=== PATIENT | male | born 1955 | race Caucasian/White ===

== ENCOUNTER → 2020-05-26 | Outpatient (CLI) | payer OTHER ==
[~2020-05-26] MED LIST: ASCO500C PO; GLUC-11 PO; MULT-245 PO; OMEG-33 PO; SIMV40TA PO
== END ==
LOC: LAB 07:30
PROVIDERS: ATTEND Nurse Anesthetist, Certified Registered
DX: Z01.812 Encounter for preprocedural laboratory examination (principal); Z86.010 Personal history of colon polyps; Z20.822 Contact with and (suspected) exposure to COVID-19
CPT/HCPCS: U0003; U0005

== ENCOUNTER → 2020-05-30 | Day surgery (SDC) | payer OTHER ==
[~2020-05-30] MED LIST changes: +IPRATRPIUM/ALBUTEROL 0.5/2.5MG 3 ML NEBU. NEB PRN; +IV RINGERS SOLUTION,LACTATED 1,000 ML IV SCH; +LIDOCAINE 2% PF 5 ML VIAL. ONE; +MIDAZOLAM HCL PF 2 MG/2 ML VIAL. IV ONE; +ONDANSETRON PF 4 MG/2 ML VIAL. IV PRN; +PROPOFOL 10,000 MCG/ML (20ML) VIAL IV ONE
[2020-05-30 10:21] VITALS: BP 120/84
--- NOTE | 2020-06-02 15:11 | PATHOLOGY ---
[facility] Accession Number: [id number] . 01 Material submitted: . PART A: cecum - CECUM POLYP BIOPSIES PART B: rectum - RECTAL POLYP . 01 Clinical history: . COLONOSCOPY SCREENING/HISTORY OF POLYPS . 02 Diagnosis: A. Colon biopsies, cecal polyp: - Prominent mucosal fold, with single mucosal-associated lymphoid aggregate. . B. Colorectal biopsy, rectal polyp: - Tubular adenoma. (JPM:estela; 06/02/2020) S 06/02/2020 1148 Local . 02 Comment: There is no high grade dysplasia or evidence of malignancy. (JPM:estela; 06/02/2020) . 02 Electronically signed: . Damon Hernandez MD, Pathologist NPI- [id number] . 01 Gross description: . A. The specimen is received in formalin, labeled "Papito Eric ., cecum polyp biopsies". Received are two segments of pale nathan tissue measuring 0.3 and 0.5 cm in maximum dimensions. The specimen is submitted entirely in cassette A1. . B. The specimen is received in formalin, labeled "Papito Rojojeannie Wellington., rectal polyp". Received is a segment of light brown tissue measuring 0.5 cm in maximum dimensions. The specimen is submitted entirely in cassette B1. (CAA; 06/01/2020) QAC/QAC 06/01/2020 1320 Local . 02 Pathologist provided ICD-10: D12.8, Z12.11 . 02 CPT . 357036, 272603 Specimen Comment: A courtesy copy of this report has been sent to [phone], [phone] Specimen Comment: [id number] Specimen Comment: Report sent to / DR RANDLE Performed at: 01 [facility] [address], [place] [id number] MD Jason Jaquez MD Phone: [phone] Performed at: 02 [facility] [address] [place], [place] [id number] MD Damon Hernandez MD Phone: [phone]
== END | disposition home or self-care (01) ==
LOC: SURG 08:32 → EDUNIT# 10:00
PROVIDERS: ATTEND Emergency Medicine
DX: Z12.11 Encounter for screening for malignant neoplasm of colon (principal); D12.8 Benign neoplasm of rectum; K63.89 Other specified diseases of intestine; K57.30 Diverticulosis of large intestine without perforation or abscess without bleeding; Z79.899 Other long term (current) drug therapy; Z72.89 Other problems related to lifestyle; Z86.010 Personal history of colon polyps
CPT/HCPCS: 45380; 45385; 88305; J2001; J2704; J7120